=== PATIENT | male | born 1965 | race Caucasian/White ===

== ENCOUNTER → 2021-08-28 | Outpatient (CLI) | payer MEDICARE, OTHER | LOC: KOH-I 08-09 13:00 | DX: S91.135A Puncture wound without foreign body of left lesser toe(s) without damage to nail, initial encounter (principal); S91.302A Unspecified open wound, left foot, initial encounter; S91.309A Unspecified open wound, unspecified foot, initial encounter; M79.89 Other specified soft tissue disorders; R93.6 Abnormal findings on diagnostic imaging of limbs | CPT/HCPCS: 73718; 93926 ==